=== PATIENT | female | born 1935 | race Caucasian/White ===

== ENCOUNTER 2017-09-14 12:43 | Inpatient (IN) | payer MEDICARE, OTHER ==
[2017-09-14] MEDS ORDERED: NICOTINE 7 MG PATCH TD PRN (12:54)
[2017-09-14] MEDS ORDERED: SODIUM CHLORIDE 0.9% FLUSH 10 ML SOL IV PRN (12:54)
[2017-09-14] MEDS ORDERED: SODIUM CHLORIDE 0.9% 500 ML 500 ML IV ONE (13:45)
[2017-09-14] MEDS ORDERED: ACETAMINOPHEN 500 MG 500 MG TAB PO PRN (13:55)
[2017-09-14] MEDS ORDERED: TEMAZEPAM 7.5 MG CAP PO PRN (13:57)
[2017-09-14] MEDS ORDERED: MECLIZINE HYDROCHLORIDE 12.5 MG TAB PO PRN (14:00)
[2017-09-14] MEDS ORDERED: DOCUSATE SODIUM 100 MG SGL PO PRN (14:01)
[2017-09-14] MEDS ORDERED: FUROSEMIDE 20mg SOL IV ONE (15:20)
[2017-09-14] MEDS ORDERED: ALBUTEROL NEB SOL 2.5MG/3ML 1 VIAL SOL NEB PRN (15:26)
[2017-09-14] MEDS: FUROSEMIDE 20 MG TAB PO SCH (16:57)
[2017-09-14] MEDS ORDERED: SODIUM CHLORIDE 0.9% 1000ML 1,000 ML IV SCH (17:00)
[2017-09-14] MEDS: ENOXAPARIN 40 MG SOL SC SCH (17:01)
[2017-09-14] MEDS: METOPROLOL TARTRATE 25 MG TAB PO SCH ×2 (17:06→20:13)
[2017-09-14] MEDS: CIPROFLOXACIN HCL 500 MG TAB PO SCH ×2 (17:07→20:14)
[2017-09-14] MEDS: ALBUTEROL/IPRATROPIUM 1 VIAL SOL INH SCH ×2 (17:18→23:48)
[2017-09-14] MEDS: POTASSIUM CHLORIDE 10 MEQ TER PO SCH (20:14)
[2017-09-15] MEDS: ALBUTEROL/IPRATROPIUM 1 VIAL SOL INH SCH ×4 (06:00→22:33)
[2017-09-15 07:55] LABS: BASOPHILS % (AUTO) 2 % (0-3); EOSINOPHILS % (AUTO) 3 % (0-9); HEMATOCRIT 35 % (35-47); MEAN CORPUSCULAR HGB CONC 33.8 gm/dl (32.0-36.0); MEAN CORPUSCULAR VOLUME 95 fL (81-99); MONOCYTES % (AUTO) 11.6 % (0-12); NEUTROPHILS % (AUTO) 51.3 % (37-80)
[2017-09-15 08:04] LABS: POTASSIUM 3.7 mMol/L (3.5-5.1)
[2017-09-15] MEDS: ASPIRIN 325 MG TAB PO SCH (08:29)
[2017-09-15] MEDS: POTASSIUM CHLORIDE 10 MEQ TER PO SCH ×2 (08:30→20:30)
[2017-09-15] MEDS: FUROSEMIDE 20 MG TAB PO SCH ×2 (08:30→12:31)
[2017-09-15] MEDS: METOPROLOL TARTRATE 25 MG TAB PO SCH ×2 (09:12→20:30)
[2017-09-15] MEDS: CIPROFLOXACIN HCL 500 MG TAB PO SCH ×2 (09:12→20:30)
[2017-09-15] MEDS: ENOXAPARIN 40 MG SOL SC SCH (09:13)
[2017-09-15 22:39] VITALS: RESP 20
[2017-09-16] MEDS: ALBUTEROL/IPRATROPIUM 1 VIAL SOL INH SCH ×2 (04:53→11:34)
[2017-09-16 05:02] VITALS: O2SAT 98
[2017-09-16 07:45] LABS: BASOPHILS % (AUTO) 2 % (0-3); EOSINOPHILS % (AUTO) 4 % (0-9); HEMATOCRIT 36 % (35-47); MEAN CORPUSCULAR HGB CONC 33.9 gm/dl (32.0-36.0); MEAN CORPUSCULAR VOLUME 95 fL (81-99); MONOCYTES % (AUTO) 11.1 % (0-12); NEUTROPHILS % (AUTO) 53.9 % (37-80)
[2017-09-16 07:55] LABS: CALCIUM 8.2 mg/dl (8.5-10.1)
[2017-09-16 08:02] LABS: POTASSIUM 3.7 mMol/L (3.5-5.1)
[2017-09-16 08:47] VITALS: BP 162/82; PULSE 59; TEMP 97.7
[2017-09-16] MEDS: FUROSEMIDE 20 MG TAB PO SCH (09:50)
[2017-09-16] MEDS: METOPROLOL TARTRATE 25 MG TAB PO SCH (09:51)
[2017-09-16] MEDS: ASPIRIN 325 MG TAB PO SCH (09:55)
[2017-09-16] MEDS: POTASSIUM CHLORIDE 10 MEQ TER PO SCH (09:55)
[2017-09-16] MEDS: ENOXAPARIN 40 MG SOL SC SCH (10:06)
[2017-09-16] MEDS ORDERED: PNEUMOC 13-VAL CONJ-DIP CRM/PF 0.5 ML SYRINGE IM ONE (10:13)
== END 2017-09-16 11:05 | disposition home health service (06) | DRG 641 ==
LOC: ACUTE CARE 12:43 → UNDOADMIN 12:43
PROVIDERS: ADMIT Emergency Medicine; ATTEND Emergency Medicine
PROC: F01ZDFZ Gait and/or Balance Assessment using Assistive, Adaptive, Supportive or Protective Equipment (ICD-10-PCS; principal; 2017-09-15)
PROC: F01ZBZZ Bed Mobility Assessment (ICD-10-PCS; 2017-09-15)
PROC: F01ZCZZ Transfer Assessment (ICD-10-PCS; 2017-09-15)
PROC: F02Z1ZZ Dressing Assessment (ICD-10-PCS; 2017-09-15)
PROC: F02Z0ZZ Bathing/Showering Assessment (ICD-10-PCS; 2017-09-15)
PROC: F02Z3ZZ Grooming/Personal Hygiene Assessment (ICD-10-PCS; 2017-09-15)
DX: E86.0 Dehydration (principal); N30.01 Acute cystitis with hematuria; J44.9 Chronic obstructive pulmonary disease, unspecified; I10 Essential (primary) hypertension; F17.210 Nicotine dependence, cigarettes, uncomplicated; R46.89 Other symptoms and signs involving appearance and behavior; R53.1 Weakness; R06.02 Shortness of breath
CPT/HCPCS: 36415; 71046; 80048; 83880; 85025; 90670; 93005; 93012; 93306; 94150; 94640; 94664; J1650; J1940; J7620; A9270-GY; G0008

== ENCOUNTER 2017-11-06 18:06 | Emergency (ER) | payer MEDICARE, OTHER ==
[2017-11-06 19:37] VITALS: RESP 20; TEMP 97.6
[2017-11-06] MEDS ORDERED: KETOROLAC TROMETHAMINE 30 MG/ML SOL IM ONE (19:56)
[2017-11-06] MEDS ORDERED: KETOROLAC TROMETHAMINE 30 MG/ML SOL ONE (20:00)
[2017-11-06 22:50] VITALS: BP 101/69; PULSE 77; O2SAT 97
== END 2017-11-06 22:25 | disposition short-term general hospital (02) | DRG 536 ==
LOC: ED 18:06
DX: S72.012A Unspecified intracapsular fracture of left femur, initial encounter for closed fracture (principal); M25.562 Pain in left knee
CPT/HCPCS: 73501; 73560; 73700; 99285; J1885

== ENCOUNTER 2017-12-16 14:39 | Outpatient (CLI) | payer MEDICARE, OTHER ==
[2017-11-06 22:50] VITALS: O2SAT 97
== END 2017-12-16 14:40 | disposition home or self-care (01) | DRG 566 ==
LOC: CONVCARE 14:39
PROVIDERS: ATTEND Orthopaedic Surgery
DX: Z96.642 Presence of left artificial hip joint (principal); Z47.1 Aftercare following joint replacement surgery
CPT/HCPCS: 73502

== ENCOUNTER 2018-03-11 08:35 | Emergency (ER) | payer MEDICARE, OTHER ==
[2018-03-11 09:17] VITALS: TEMP 98.9
[2018-03-11] MEDS ORDERED: ACETAMINOPHEN 325 MG PO ONE (10:21)
[2018-03-11] MEDS ORDERED: ACETAMINOPHEN 500 MG 500 MG TAB ONE (10:30)
[2018-03-11] MEDS ORDERED: ALBUTEROL/IPRATROPIUM 1 VIAL SOL INH ONE (11:15)
[2018-03-11 11:49] VITALS: RESP 16
[2018-03-11 11:51] VITALS: PULSE 72
[2018-03-11 11:59] VITALS: BP 127/77; O2SAT 94
== END 2018-03-11 11:25 | disposition home or self-care (01) | DRG 605 ==
LOC: ED 08:35
DX: S80.02XA Contusion of left knee, initial encounter (principal); W19.XXXA Unspecified fall, initial encounter
CPT/HCPCS: 73560; 99282; 99283

== ENCOUNTER 2018-04-26 02:12 | Inpatient (IN) | payer MEDICARE, OTHER ==
[2018-04-26] MEDS ORDERED: SODIUM CHLORIDE 0.9% FLUSH 10 ML SOL IV PRN (02:58)
[2018-04-26] MEDS: SODIUM CHLORIDE 0.9% 1000ML 1,000 ML IV SCH ×3 (03:00→17:56)
[2018-04-26 03:10] LABS: HEMATOCRIT 35 % (35-47); HEMOGLOBIN 11.4 gm/dl (12.0-15.5); MEAN CORPUSCULAR HEMOGLOBIN 32.2 pg (27.0-32.0); MEAN CORPUSCULAR HGB CONC 32.3 gm/dl (32.0-36.0)
[2018-04-26 03:13] LABS: MEAN CORPUSCULAR VOLUME 100 fL (81-99)
[2018-04-26 03:19] LABS: APPEARANCE,URINE Slightly Cloudy; BILIRUBIN,URINE NEGATIVE (NEGATIVE); COLOR,URINE Yellow; GLUCOSE, URINE (UA) NEGATIVE (NEGATIVE); KETONES,URINE 1+ (NEGATIVE); LEUKOCYTE ESTERASE ,URINE 2+ (NEGATIVE); NITRATE,URINE NEGATIVE (NEGATIVE); OCCULT BLOOD,URINE 2+ (NEG-TRACE); UROBILINOGEN,URINE 0.2 (0.2-1.0 EU)
[2018-04-26 03:19] LABS: ALBUMIN 2.5 gm/dl (3.4-5.0); BILIRUBIN,TOTAL 0.4 mg/dl (0.2-1.0); CALCIUM 8.1 mg/dl (8.5-10.1); CARBON DIOXIDE 27.7 mEq/L (21-32); CREATININE 1.55 mg/dl (0.60-1.00); POTASSIUM 3.1 mMol/L (3.5-5.1); TOTAL PROTEIN 6.8 gm/dl (6.4-8.2)
[2018-04-26 03:27] LABS: BAND NEUTROPHILS % (MANUAL) 21 %; BASOPHILS % (MANUAL) 0 % (0-3); EOSINOPHILS % (MANUAL) 0 % (0-9); LYMPHOCYTES % (MANUAL) 3 % (10-50); MONOCYTES % (MANUAL) 3 % (0-12); NEUTROPHILS % (MANUAL) 73 % (37-80); NORMAL RBCS PRESENT
[2018-04-26 03:31] LABS: BACTERIA 3+ (< 1+); CRYSTALS NEGATIVE (0-3 AVE/HPF); WBC,URINE 40-50 (0-5AV/HPF)
[2018-04-26] MEDS ORDERED: CEFTRIAXONE 1 GM PDS 1 GM in SODIUM CHLORIDE 0.9% 50 ML 50 ML IV ONE (03:34)
[2018-04-26] MEDS ORDERED: CEFTRIAXONE 1 GM PDS ONE (03:36)
[2018-04-26] MEDS ORDERED: ACETAMINOPHEN 500 MG 500 MG TAB PO PRN (03:58)
[2018-04-26] MEDS: POTASSIUM CHLORIDE 10 MEQ TER PO SCH ×3 (06:25→12:12)
[2018-04-26 07:54] LABS: BASOPHILS % (AUTO) 0 % (0-3); EOSINOPHILS % (AUTO) 1 % (0-9); HEMATOCRIT 34 % (35-47); HEMOGLOBIN 11.1 gm/dl (12.0-15.5); LYMPHOCYTES % (AUTO) 7.2 % (10-50); MEAN CORPUSCULAR HEMOGLOBIN 32.3 pg (27.0-32.0); MEAN CORPUSCULAR HGB CONC 32.6 gm/dl (32.0-36.0); MONOCYTES % (AUTO) 4.7 % (0-12); NEUTROPHILS % (AUTO) 86.4 % (37-80)
[2018-04-26 07:56] LABS: MEAN CORPUSCULAR VOLUME 99 fL (81-99)
[2018-04-26 08:02] LABS: CALCIUM 7.9 mg/dl (8.5-10.1); CARBON DIOXIDE 27.8 mEq/L (21-32); CREATININE 1.27 mg/dl (0.60-1.00); POTASSIUM 3.4 mMol/L (3.5-5.1)
[2018-04-26] MEDS ORDERED: OMEPRAZOLE 20 MG CAPSULE PO SCH (09:00)
[2018-04-26] MEDS: LEVOFLOXACIN 500 MG (PREMIX) 500 MG/100 ML SOL IV SCH (09:05)
[2018-04-26] MEDS: BUPROPION HCL PO SCH ×2 (09:24→20:27)
[2018-04-26] MEDS: ASPIRIN 325 MG TAB PO SCH (09:24)
[2018-04-26] MEDS: GABAPENTIN 100 MG CAP PO SCH ×3 (09:25→20:28)
[2018-04-26] MEDS: PANTOPRAZOLE SODIUM 40 MG ECT PO SCH ×2 (09:25→20:28)
[2018-04-26] MEDS: LISINOPRIL 5 MG TAB PO SCH (09:25)
[2018-04-26] MEDS: FUROSEMIDE 20 MG TAB PO SCH (09:25)
[2018-04-27] MEDS: SODIUM CHLORIDE 0.9% 1000ML 1,000 ML IV SCH ×2 (00:30→06:07)
[2018-04-27 07:22] LABS: CALCIUM 7.8 mg/dl (8.5-10.1); CARBON DIOXIDE 25.5 mEq/L (21-32); CREATININE 1.07 mg/dl (0.60-1.00); POTASSIUM 4.2 mMol/L (3.5-5.1)
[2018-04-27 07:35] LABS: BASOPHILS % (AUTO) 1 % (0-3); EOSINOPHILS % (AUTO) 18 % (0-9); HEMATOCRIT 32 % (35-47); LYMPHOCYTES % (AUTO) 18.8 % (10-50); MEAN CORPUSCULAR HEMOGLOBIN 31.7 pg (27.0-32.0); MEAN CORPUSCULAR HGB CONC 31.2 gm/dl (32.0-36.0); MONOCYTES % (AUTO) 10.3 % (0-12); NEUTROPHILS % (AUTO) 52.3 % (37-80)
[2018-04-27 07:39] LABS: MEAN CORPUSCULAR VOLUME 102 fL (81-99)
[2018-04-27] MEDS: BUPROPION HCL PO SCH ×2 (09:15→20:37)
[2018-04-27] MEDS: LEVOFLOXACIN 500 MG TAB PO SCH (09:16)
[2018-04-27] MEDS: GABAPENTIN 100 MG CAP PO SCH ×3 (09:16→20:37)
[2018-04-27] MEDS: PANTOPRAZOLE SODIUM 40 MG ECT PO SCH ×2 (09:16→20:37)
[2018-04-27] MEDS: ASPIRIN 325 MG TAB PO SCH (09:16)
[2018-04-27] MEDS: LISINOPRIL 5 MG TAB PO SCH (09:17)
[2018-04-27] MEDS: FUROSEMIDE 20 MG TAB PO SCH (09:17)
[2018-04-27] MEDS: LEVOFLOXACIN 500 MG (PREMIX) 500 MG/100 ML SOL IV SCH (09:21)
[2018-04-28 01:31] VITALS: RESP 16; O2SAT 94
[2018-04-28] MEDS: BUPROPION HCL PO SCH (08:55)
[2018-04-28] MEDS: FUROSEMIDE 20 MG TAB PO SCH (08:55)
[2018-04-28] MEDS: ASPIRIN 325 MG TAB PO SCH (08:55)
[2018-04-28] MEDS: LISINOPRIL 5 MG TAB PO SCH (08:56)
[2018-04-28] MEDS: GABAPENTIN 100 MG CAP PO SCH ×2 (08:56→14:05)
[2018-04-28] MEDS: LEVOFLOXACIN 500 MG TAB PO SCH (08:56)
[2018-04-28] MEDS: PANTOPRAZOLE SODIUM 40 MG ECT PO SCH (08:56)
[2018-04-28 11:07] VITALS: BP 155/68; PULSE 66; TEMP 99.2
== END 2018-04-28 15:07 | disposition home health service (06) | DRG 945 ==
LOC: ED 02:12 → ACUTE CARE 03:45
PROVIDERS: ADMIT Family Medicine; ATTEND Family Medicine
PROC: F01L5YZ Range of Motion and Joint Integrity Assessment of Musculoskeletal System - Lower Back / Lower Extremity using Other Equipment (ICD-10-PCS; principal; 2018-04-26)
PROC: F01ZBFZ Bed Mobility Assessment using Assistive, Adaptive, Supportive or Protective Equipment (ICD-10-PCS; 2018-04-26)
DX: R53.1 Weakness (principal); N30.01 Acute cystitis with hematuria; J44.9 Chronic obstructive pulmonary disease, unspecified; E87.6 Hypokalemia; R06.02 Shortness of breath
CPT/HCPCS: 36415; 80048; 80053; 81001; 85007; 85025; 85027; 87077; 87088; 87186; 96365; 99070; 99222; 99285; J0696; J1956; A9270-GY

== ENCOUNTER 2018-09-27 06:32 | Emergency (ER) | payer MEDICARE, OTHER ==
[2018-09-27 06:56] VITALS: TEMP 98.2
[2018-09-27 07:13] LABS: BASOPHILS % (AUTO) 1 % (0-3); EOSINOPHILS % (AUTO) 6 % (0-9); HEMATOCRIT 35 % (35-47); HEMOGLOBIN 11.2 gm/dl (12.0-15.5); LYMPHOCYTES % (AUTO) 23.5 % (10-50); MEAN CORPUSCULAR HEMOGLOBIN 31.7 pg (27.0-32.0); MONOCYTES % (AUTO) 10.7 % (0-12); NEUTROPHILS % (AUTO) 58.7 % (37-80)
[2018-09-27 07:22] LABS: MEAN CORPUSCULAR VOLUME 99 fL (81-99)
[2018-09-27 07:27] LABS: ALBUMIN 2.8 gm/dl (3.4-5.0); BILIRUBIN,TOTAL 0.5 mg/dl (0.2-1.0); CALCIUM 7.8 mg/dl (8.5-10.1); CARBON DIOXIDE 28.1 mEq/L (21-32); CREATININE 1.46 mg/dl (0.60-1.00); POTASSIUM 3.8 mMol/L (3.5-5.1); TOTAL PROTEIN 6.9 gm/dl (6.4-8.2); TROP I 0.033 ng/ml (0.000-0.056)
[2018-09-27 08:32] LABS: APPEARANCE,URINE Cloudy; BILIRUBIN,URINE NEGATIVE (NEGATIVE); COLOR,URINE Yellow; GLUCOSE, URINE (UA) NEGATIVE (NEGATIVE); KETONES,URINE NEGATIVE (NEGATIVE); LEUKOCYTE ESTERASE ,URINE 2+ (NEGATIVE); NITRATE,URINE NEGATIVE (NEGATIVE); OCCULT BLOOD,URINE 2+ (NEG-TRACE); UROBILINOGEN,URINE 0.2 (0.2-1.0 EU)
[2018-09-27 08:42] LABS: BACTERIA 3+ (< 1+); CRYSTALS NEGATIVE (0-3 AVE/HPF); WBC,URINE 100-150 (0-5AV/HPF)
[2018-09-27 10:02] VITALS: O2SAT 93
[2018-09-27 10:06] VITALS: BP 152/76; PULSE 77; RESP 22
== END 2018-09-27 10:15 | disposition home or self-care (01) | DRG 690 ==
LOC: ED 06:32
DX: N30.01 Acute cystitis with hematuria (principal); Z91.81 History of falling; I50.9 Heart failure, unspecified; I10 Essential (primary) hypertension
CPT/HCPCS: 36415; 80053; 81001; 83880; 84484; 85025; 87077; 87088; 87186; 93005; 99283; 99284

== ENCOUNTER 2018-10-02 08:53 | Emergency (ER) | payer MEDICARE, OTHER ==
[2018-10-02 09:13] VITALS: BP 148/74; PULSE 75; RESP 16; TEMP 97.8; O2SAT 94
== END 2018-10-02 10:05 | disposition home or self-care (01) | DRG 556 ==
LOC: ED 08:53
DX: M25.512 Pain in left shoulder (principal); M25.511 Pain in right shoulder
CPT/HCPCS: 99282

== ENCOUNTER 2019-02-11 11:44 | Emergency (ER) | payer MEDICARE, OTHER ==
[2019-02-11 12:05] VITALS: RESP 18; TEMP 97.8
[2019-02-11 12:39] LABS: APPEARANCE,URINE Cloudy; BILIRUBIN,URINE NEGATIVE (NEGATIVE); COLOR,URINE Yellow; GLUCOSE, URINE (UA) NEGATIVE (NEGATIVE); KETONES,URINE NEGATIVE (NEGATIVE); LEUKOCYTE ESTERASE ,URINE 2+ (NEGATIVE); NITRATE,URINE NEGATIVE (NEGATIVE); OCCULT BLOOD,URINE TRACE INTACT (NEG-TRACE); UROBILINOGEN,URINE 0.2 (0.2-1.0 EU)
[2019-02-11 12:52] LABS: BACTERIA 4+ (< 1+); CRYSTALS NEGATIVE (0-3 AVE/HPF); EPITHELIAL CELLS 0-2 (SQUAMOUS)
[2019-02-11 13:28] VITALS: BP 128/63; PULSE 58; O2SAT 93
[2019-02-11] MEDS ORDERED: LEVOFLOXACIN 500 MG TAB PO ONE (14:21)
[2019-02-11] MEDS ORDERED: LEVOFLOXACIN 500 MG TAB ONE (14:26)
== END 2019-02-11 14:42 | disposition home or self-care (01) | DRG 690 ==
LOC: ED 11:44
DX: N30.01 Acute cystitis with hematuria (principal); W18.30XA Fall on same level, unspecified, initial encounter; I50.9 Heart failure, unspecified
CPT/HCPCS: 70450; 72120; 73130; 73522; 81001; 87077; 87088; 87186; 99283; 99284; A9270-GY

== ENCOUNTER 2019-02-23 12:29 | Emergency (ER) | payer MEDICARE, OTHER ==
[2019-02-23] MEDS ORDERED: SODIUM CHLORIDE 0.9% 1000ML 1,000 ML IV ONE (13:23)
[2019-02-23 13:43] VITALS: TEMP 98.7
[2019-02-23 14:04] VITALS: RESP 20
[2019-02-23 15:31] VITALS: BP 120/59; PULSE 62; O2SAT 92
== END 2019-02-23 15:20 | disposition home or self-care (01) | DRG 641 ==
LOC: ED 12:29
DX: E86.0 Dehydration (principal); I50.9 Heart failure, unspecified
CPT/HCPCS: 83605; 83880; 96365; 96366; 99282; 99283